=== PATIENT | female | born 1955 | race Caucasian/White ===

== ENCOUNTER 2017-08-22 11:00 | Outpatient (CLI) | payer MEDICARE, MEDICAID ==
[~2017-08-22 11:00] MED LIST: CYCL-1 PO; FLUO20CA39 PO; LAMO200T2 PO; NORCO10T PO; POTA20TA10 PO; THORAZINE PO
[2017-08-22 12:35] LABS: CHOL/HDL RATIO 3.8 (0.00-4.99); CHOLESTEROL 257 MG/DL (0-200); HDL CHOLESTEROL 67 MG/DL (35-60); LDL CHOLESTEROL 160 MG/DL (50-100); TRIGLYCERIDES 100 MG/DL (20-135)
== END 2017-08-22 23:59 | disposition home or self-care (01) ==
LOC: LAB 11:00
PROVIDERS: ATTEND Family Medicine
DX: Z12.11 Encounter for screening for malignant neoplasm of colon (principal); E78.5 Hyperlipidemia, unspecified; E03.9 Hypothyroidism, unspecified; R97.0 Elevated carcinoembryonic antigen [CEA]
CPT/HCPCS: 36415; 80061; 82378; 84443

== ENCOUNTER 2018-10-06 08:30 | Outpatient (CLI) | payer MEDICARE, MEDICAID | END 2018-10-06 23:59 | disposition home or self-care (01) | LOC: RAD 08:30 | PROVIDERS: ATTEND Internal Medicine Cardiovascular Disease | DX: R55 Syncope and collapse (principal); J44.9 Chronic obstructive pulmonary disease, unspecified; Z87.891 Personal history of nicotine dependence; Z85.118 Personal history of other malignant neoplasm of bronchus and lung | CPT/HCPCS: 95816 ==

== ENCOUNTER 2018-11-08 09:47 | Outpatient (CLI) | payer MEDICARE, MEDICAID ==
[2018-11-08 12:11] LABS: CHOLESTEROL 234 MG/DL (0-200); HDL CHOLESTEROL 58 MG/DL (35-60); LDL CHOLESTEROL 155 MG/DL (50-100); TRIGLYCERIDES 97 MG/DL (20-135)
== END 2018-11-08 23:59 | disposition home or self-care (01) ==
LOC: LAB 09:47
PROVIDERS: ATTEND Family Medicine
DX: E03.9 Hypothyroidism, unspecified (principal); E78.5 Hyperlipidemia, unspecified; R97.0 Elevated carcinoembryonic antigen [CEA]; J44.9 Chronic obstructive pulmonary disease, unspecified; Z12.11 Encounter for screening for malignant neoplasm of colon; Z00.00 Encounter for general adult medical examination without abnormal findings; Z88.0 Allergy status to penicillin; Z88.5 Allergy status to narcotic agent; Z88.8 Allergy status to other drugs, medicaments and biological substances
CPT/HCPCS: 36415; 80061; 82378; 84443